=== PATIENT | female | born 1965 | race Caucasian/White ===

== ENCOUNTER 2024-12-28 11:40 | Emergency (ER) | payer OTHER, SELFPAY ==
--- NOTE | ~2024-12-28 | US_ITS ---
CLINICAL HISTORY: L calf posterior knee pain Venous duplex ultrasound left lower extremity COMPARISON: None provided. FINDINGS: The visualized deep veins are fully compressible with normal Doppler color flow and spectral tracings. No popliteal cyst. No abnormality identified by ultrasound within the region of concern along the posterior thigh and posterior knee. IMPRESSION: 1. Negative for left lower extremity deep vein thrombosis. This document has been electronically signed by: Srinivas Conde MD on 12/28/2024 15:49:35
--- NOTE | ~2024-12-28 | XR_ITS ---
CLINICAL HISTORY: pain, swelling Four views of the left knee. COMPARISON: None provided. FINDINGS: No appreciable suprapatellar joint effusion. Tricompartment osteophytes. Tibial spine spurring. Joint spaces are maintained. Visualized portions of the distal femur, patella, and proximal tibia and fibula appear intact. IMPRESSION: 1. No radiographic evidence of acute injury to the left knee. 2. 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 This document has been electronically signed by: Srinivas Conde MD on 12/28/2024 13:08:07
[2024-12-28 11:47] VITALS: BP 145/88; PULSE 101; RESP 16; TEMP 36.4; O2SAT 97; BMI 48.8
--- NOTE | 2024-12-28 11:48 | ED_ITS ---
HPI - General Adult General Chief complaint: Extremity Injury, Lower Stated complaint: left leg painful over a week feels swollen Time Seen by Provider: 12/28/24 12:21 Source: patient, RN notes reviewed and old records reviewed Mode of arrival: ambulatory Limitations: no limitations History of Present Illness ED Provider: Rad[facility] narrative: Patient is a 59-year-old female with history of hypothyroidism presenting to the emergency department with complaint of left leg pain for several weeks. She states that the pain is worst to her posterior knee and lower leg. Presented to the ED for evaluation today at the referral of her triage line to rule out DVT. She states that she works at a [employer] and stands for her entire shift, when she returns home she has increased swelling to her left lower leg as well as increased pain. Denies recent fall or other trauma. Came for evaluation today as she is traveling later this week. Denies chest pain, palpitations or dyspnea. Denies any personal or family history of blood clots. MD complaint: Left lower leg pain Onset (ago): week(s) Related Data Allergies Allergy/AdvReac Type Severity Reaction Status Date / Time No Known Allergies Allergy Verified 12/28/24 11:53 Review of Systems Review of Systems: As per HPI Yes all other systems are reviewed and are negative Constitutional: Constitutional: Reports as per HPI PMFSH Social History Social History Smoked in Last 30 Days: No Use of substances other than those prescribed or required for medical reasons: No Advance Directives: No Advance Directives Information Provided: Yes Do you have a plan to hurt others: No Plan Physical Exam ED Vital Signs: Vital Signs - 24 hr 12/28/24 11:47 12/28/24 12:23 12/28/24 14:28 Temperature 97.6 F 98.1 F Pulse Rate 101 H 80 69 Respiratory Rate 16 18 16 Blood Pressure 145/88 H 158/81 H 120/78 Pulse Oximetry 97 97 98 Oxygen Delivery Method Room Air Room Air 12/28/24 16:00 Temperature Pulse Rate 74 Respiratory Rate 16 Blood Pressure 132/71 Pulse Oximetry 94 Oxygen Delivery Method Room Air BMI result Body Mass Index 48.8 Vital signs have been reviewed and appear to be correct. Blood pressure normal. Heart rate normal. Respiratory rate normal. Temperature normal. Oxygen saturation normal. Const General: cooperative and no acute distress Nutritional Appearance: obese Orientation/consciousness: oriented to person, oriented to place, oriented to time and patient oriented x3 Limitations: no limitations HENMT Head: Yes normocephalic and Yes atraumatic Ears: external ears normal General nose exam: Normal external nose present Face and sinus: Yes face symmetric Mouth: oropharynx normal and moist mucous membranes Throat: Yes uvula midline Eyes Pupils: Equal, round and reactive pupils present Neck Neck: Yes normal visual inspection and Yes supple Resp Effort & Inspection: normal respiratory effort and able to speak in complete sentences Auscultation: clear to auscultation bilaterally Cardio Rate: regular rate Rhythm: regular rhythm Heart sounds: S1 normal heart sound present and S2 normal heart sound present GI Palpation (GI): Soft to palpation and nontender Auscultation: normoactive bowel sounds General: Yes no CVA tenderness Back/Spine/Pelvis Back: no CVA tenderness Skin General skin exam: elasticity normal and turgor normal Neuro General: oriented to person, oriented to place, oriented to time, patient oriented x3, moves all extremities, no focal motor deficits and CN's II-XI intact bilaterally Cranial nerves: Yes Equal, round and reactive pupils present Cognition (Neuro): normal cognition Extrem General: Yes full ROM, Yes no pedal edema and Yes no calf tenderness Left lower extremity: normal to inspection, knee Details: normal to inspection, tenderness Location: of the popliteal fossa, normal ROM (increased pain with ROM) and knee ligament exam normal; no swelling, no ecchymosis, no deformity and no unusual warmth and lower leg Details: normal to inspection; no tenderness Psych Mental Status: mental status grossly normal Affect: normal affect Thought process: Normal thought process present Course Course Course Narrative: Farideh Mejias [employer] 12/28 1148 This is a rapid medical exam. Deferred additional HPI, ROS, PE to primary provider. 59 yo female with PMH of hypothyroidism (off medication for months) here with complaints of left leg swelling and pain for several weeks. Reports pain in entire leg. Difficulty bending her left knee. No injury or trauma. Taking OTC analgesia with continued symptoms. Unable to visualize in triage d/t clothing. Will obtain x-rays. VSS Medical Decision Making Medical Decision Making MDM Narrative: Patient is a 59-year-old female with history of hypothyroidism presenting to the emergency department with complaint of left leg pain for several weeks. On exam patient is awake, A+Ox3, VS WNL, afebrile, normal neurological exam without focal deficits, physical exam findings as above. Given reported symptoms and physical exam findings, initial differential includes but is not limited to left knee strain, sprain, Claudio's cyst, DVT. X-ray left knee ordered by triage provider notable for no acute injury, mild to moderate degenerative changes. U/S is without evidence of DVT or Claudio's cyst. My interpretation is in agreement with the radiologist's interpretation. Results discussed with patient and all questions answered. Patient provided with Lokesh bandage for support, discussed that she can also purchase an [id number] knee brace for additional support. Discussed with patient that she can wear compression stockings while at work to help decrease her pain and swelling. Advised her to keep legs elevated while at rest. Will refer to Orthopedics for ongoing symptoms. Return precautions discussed at bedside. Patient verbalized understanding of and agreement with plan. Differential Diagnosis Differential Diagnoses: The differential diagnosis associated with the presentation includes As per [facility] Admission/Observation Consideration of admission/observation: Escalation of care including admission/observation considered Patient would have been admitted to the hospital had their clinical presentation warranted hospital admission. Independent Interpretation I performed an independent interpretation of an: Plain X-Ray Interpretation: X-ray left knee ordered by triage provider notable for no acute injury, mild to moderate degenerative changes. Left lower extremity ultrasound is without evidence of DVT or Claudio's cyst. Radiology Impression Discussion of test interpretation with radiology: I have reviewed the radiologist's reading. Radiologist Impression: Four views of the left knee. COMPARISON: None provided. FINDINGS: No appreciable suprapatellar joint effusion. Tricompartment osteophytes. Tibial spine spurring. Joint spaces are maintained. Visualized portions of the distal femur, patella, and proximal tibia and fibula appear intact. IMPRESSION: 1. No radiographic evidence of acute injury to the left knee. 2. 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 Venous duplex ultrasound left lower extremity COMPARISON: None provided. FINDINGS: The visualized deep veins are fully compressible with normal Doppler color flow and spectral tracings. No popliteal cyst. No abnormality identified by ultrasound within the region of concern along the posterior thigh and posterior knee. IMPRESSION: 1. Negative for left lower extremity deep vein thrombosis. External Record Review External record reviewed: Inpatient record, Office record and Outpatient record Discharge Plan Discharge Clinical Impression: Strain of left knee Qualifiers: Encounter type: initial encounter Qualified Code(s): S86.912A - Strain of unspecified muscle(s) and tendon(s) at lower leg level, left leg, initial encounter Patient Disposition: Home, Self-Care Instructions: How to Use an Elastic Bandage (ED), Knee Pain (ED), P.R.I.C.E. Treatment (ED) Additional Instructions: You have been evaluated in the emergency department today for left leg pain. Your evaluation did not find evidence of medical conditions requiring emergent intervention at this time. We have provided an LOKESH bandage for you to use while your knee/leg heals. Please rest, ice, and elevate your leg, and resume normal activities as tolerated. As discussed, you can also wear compression stockings while at work. We recommend you take 600mg ibuprofen every 6 hours or 650mg Tylenol every 6 hours as needed for pain. If needed you can alternate these medications as they take 1 medication every 3 hours. For instance at noon take ibuprofen, then at 3:00 p.m. take Tylenol, then at 6:00 p.m. take ibuprofen. Please schedule an appointment for follow-up with your primary care provider this week. Return to the emergency department if you experience worsening pain, numbness, tingling, change of color in your leg, or any other concerning symptoms. Follow up with orthopedics for ongoing symptoms. Referrals: [facility] [place] Orthopedic Surgeons [Provider Group] Clinical Impression: Strain of left knee Print Language: Greek
[2024-12-28 12:23] VITALS: BP 158/81; PULSE 80; RESP 18; O2SAT 97
--- NOTE | 2024-12-28 12:31 | PC.NURSE ---
Patient is a 59 yo female with PMH of hypothyroidism (off medication for months) and obesity here with complaints of left leg swelling and pain for several weeks. Reports pain in entire leg. Difficulty bending her left knee. No injury or trauma. Taking OTC analgesia with continued symptoms. Alert and oriented. Lungs clear bilat. Respirations even and non-labored. Abdomen large, soft, non-tender with positive bowel sounds. Positive pedal pulses with ? some swelling to the left LE. c/o patient from posterior thigh down leg increasing with movement. Patient works at the [employer] at [employer] and is on her feet consistently.
[2024-12-28 14:28] VITALS: BP 120/78; PULSE 69; RESP 16; TEMP 36.7; O2SAT 98
[2024-12-28 16:00] VITALS: BP 132/71; PULSE 74; RESP 16; O2SAT 94
[2024-12-28 17:20] VITALS: BP 132/71; PULSE 74; RESP 16; TEMP 36.7; O2SAT 94
== END 2024-12-28 17:21 | disposition home or self-care (01) ==
PROVIDERS: Emergency Provider Emergency Medicine
DX: S86.912A Strain of unspecified muscle(s) and tendon(s) at lower leg level, left leg, initial encounter (principal); M79.605 Pain in left leg; R60.0 Localized edema; X50.9XXA Other and unspecified overexertion or strenuous movements or postures, initial encounter; Y93.9 Activity, unspecified; Y92.9 Unspecified place or not applicable; Y99.8 Other external cause status
CPT/HCPCS: 73562; 93971; 99284

== ENCOUNTER → 2024-12-28 11:53 | Outpatient (BNV) | payer OTHER, SELFPAY | PROVIDERS: Emergency Provider Emergency Medicine; Visit Provider Radiology Diagnostic Radiology | DX: M79.662 Pain in left lower leg (principal); M17.12 Unilateral primary osteoarthritis, left knee | CPT/HCPCS: 73562; 93971 ==